=== PATIENT | male | born 1995 | race Two or more races ===

== ENCOUNTER 2019-06-30 09:16 | Emergency (ER) | payer SELFPAY ==
[~2019-06-30] VITALS: Ht 180.3 cm; Wt 81.4 kg
[2019-06-30 09:21] VITALS: BP 140/73
--- NOTE | 2019-06-30 09:34 | NUR ---
PT STATES THAT HE WAS COOKING SOME CHICKEN AND FORGOT ABOUT IT THEN FELL ASLEEP AND WOKE UP TO A SMOKE-FILLED APARTMENT. PT HERE FOR CONCERNS OF SMOKE/CARBON MONOXIDE POISENING.
--- NOTE | 2019-06-30 10:53 | NUR ---
Patient given discharge instructions and they have confirmed that they understand the instructions. Patient ambulatory with steady gait.
== END 2019-06-30 10:53 | disposition home or self-care (01) ==
LOC: ED 10:22
DX: T58.91XA Toxic effect of carbon monoxide from unspecified source, accidental (unintentional), initial encounter (principal); Y92.9 Unspecified place or not applicable
CPT/HCPCS: 36415; 82375; 99283